=== PATIENT | female | born 2000 | race Caucasian/White ===

== ENCOUNTER 2021-12-14 06:34 | Emergency (ER) | payer BC ==
[2021-12-14 07:20] LABS: CHLORIDE,CL 104 mEq/L (98-106); SODIUM,NA 140 mEq/L (136-145)
[2021-12-14] MEDS ORDERED: Morphine 4 MG/ML VIAL IVPUSH ONE (07:37)
[2021-12-14] MEDS ORDERED: Ondansetron 4 MG/2 ML SDV IVPUSH STA (07:37)
[2021-12-14] MEDS ORDERED: Sodium Chloride 0.9% 1,000 ML IV STA (07:38)
[2021-12-14] MEDS ORDERED: Sodium Chloride 0.9% 1,000 ML IV SCH (08:00)
[2021-12-14] MEDS ORDERED: Iopamidol 755 Mg/ML 100 ML Bottle IVPUSH ONE (08:07)
[2021-12-14] MEDS ORDERED: Levofloxacin/Dextrose 5%-Water 750 MG in Premix Bag 1 BAG IV ONE (10:04)
[2021-12-14] MEDS ORDERED: metroNIDAZOLE/Normal Saline 500 MG in Premix Bag 1 BAG IV ONE (10:07)
== END 2021-12-14 12:28 ==
LOC: CC.ED 06:34
DX: K85.10 Biliary acute pancreatitis without necrosis or infection (principal); K83.1 Obstruction of bile duct; R16.0 Hepatomegaly, not elsewhere classified
CPT/HCPCS: 36415; 71046; 74177; 80053; 81001; 81025; 82150; 83605; 83690; 85025; 86140; 96365; 96367; 96375; 99284; 99285-25; J1956; J2270; J2405; J3490; J7030; Q9967